=== PATIENT | male | born 1930 | race Caucasian/White ===

== ENCOUNTER → 2016-06-05 | Outpatient (CLI) | payer MEDICARE, BC | LOC: PCVCCLINIC 11:00 | PROVIDERS: ATTEND Internal Medicine | DX: I25.10 Atherosclerotic heart disease of native coronary artery without angina pectoris (principal); I10 Essential (primary) hypertension; I35.0 Nonrheumatic aortic (valve) stenosis; E11.9 Type 2 diabetes mellitus without complications; D46.9 Myelodysplastic syndrome, unspecified; E78.5 Hyperlipidemia, unspecified | CPT/HCPCS: 80061; 93005; G0463 ==

== ENCOUNTER → 2016-12-25 | Outpatient (CLI) | payer MEDICARE, BC ==
--- NOTE | 2016-12-25 10:04 | PCVCIMAG ---
APPROVED REPORT Indications Stenosis Risk Factors Hypertension: Diabetes Surgery/Intervention Endarterectomy: right left Doppler Spectral Velocity Analysis PSV / EDVPSV / EDV ECA (R) 130 / 12 cm/sECA (L) 124 / 0 cm/s dICA (R) 59 / 11 cm/sdICA (L) 73 / 23 cm/s Maryellen (R) 132 / 23 cm/smICA (L) 137 / 37 cm/s pICA (R) 112 / 27 cm/spICA (L) 141 / 35 cm/s Bulb (R) 92 / 16 cm/sBulb (L) 118 / 27 cm/s dCCA (R) 102 / 16 cm/sdCCA (L) 104 / 12 cm/s mCCA (R) 96 / 12 cm/smCCA (L) 116 / 21 cm/s Vert (R) 53 / 13 cm/sVert (L) 48 / 14 cm/s ICA/CCA 1.29ICA/CCA 1.20 Basic Measurements Blood Pressure: Pulses: Right Left RightLeft Brachial(Sitting) 112/27xtKb068/60mmHgTemporal Real Time B-Mode Imaging Vert. (R)AntegradeVert. (L)Antegrade Findings The right carotid bulb has moderate calcified plaque. The right proximal internal carotid artery shows 40-50% stenosis. The right common carotid artery shows no significant stenosis. The right external carotid artery shows no significant stenosis. The left carotid bulb has mild plaque. The left proximal internal carotid artery shows 40-50% stenosis. The left common carotid artery shows no significant stenosis. The left external carotid artery shows no significant stenosis. Conclusion 1. Right internal carotid artery stenosis (40-50%) 2. Left internal carotid artery stenosis (40-50%) 3. Antegrade vertebral flow
== END | disposition home or self-care (01) ==
LOC: PCVCIMAG 08:10
PROVIDERS: ATTEND Internal Medicine
DX: I65.23 Occlusion and stenosis of bilateral carotid arteries (principal); I25.10 Atherosclerotic heart disease of native coronary artery without angina pectoris; I44.0 Atrioventricular block, first degree; I10 Essential (primary) hypertension; I35.0 Nonrheumatic aortic (valve) stenosis; E78.5 Hyperlipidemia, unspecified; E11.9 Type 2 diabetes mellitus without complications; D64.9 Anemia, unspecified; I48.91 Unspecified atrial fibrillation; Z95.1 Presence of aortocoronary bypass graft; Z86.718 Personal history of other venous thrombosis and embolism; Z85.46 Personal history of malignant neoplasm of prostate; Z79.899 Other long term (current) drug therapy; Z87.891 Personal history of nicotine dependence; Z88.8 Allergy status to other drugs, medicaments and biological substances
CPT/HCPCS: 80061; 93005; 93880; G0463

== ENCOUNTER → 2017-07-04 | Outpatient (CLI) | payer MEDICARE, BC | END | disposition home or self-care (01) | LOC: PCVCIMAG 09:00 | DX: I08.8 Other rheumatic multiple valve diseases (principal); I25.10 Atherosclerotic heart disease of native coronary artery without angina pectoris; I10 Essential (primary) hypertension; I65.23 Occlusion and stenosis of bilateral carotid arteries; E11.9 Type 2 diabetes mellitus without complications; E78.5 Hyperlipidemia, unspecified; D46.9 Myelodysplastic syndrome, unspecified; I48.91 Unspecified atrial fibrillation; Z95.1 Presence of aortocoronary bypass graft; Z87.891 Personal history of nicotine dependence; Z79.899 Other long term (current) drug therapy | CPT/HCPCS: 80061; 93005; 93306; G0463 ==

== ENCOUNTER → 2018-01-02 | Outpatient (CLI) | payer MEDICARE, BC | END | disposition home or self-care (01) | LOC: PCVCCLINIC 11:01 | PROVIDERS: ATTEND Internal Medicine | DX: I25.10 Atherosclerotic heart disease of native coronary artery without angina pectoris (principal); I35.0 Nonrheumatic aortic (valve) stenosis; I10 Essential (primary) hypertension; I65.23 Occlusion and stenosis of bilateral carotid arteries; D64.9 Anemia, unspecified; Z79.4 Long term (current) use of insulin; Z87.891 Personal history of nicotine dependence; Z88.8 Allergy status to other drugs, medicaments and biological substances | CPT/HCPCS: 80061; 93005; G0463 ==

== ENCOUNTER → 2018-08-07 | Outpatient (CLI) | payer MEDICARE, BC ==
--- NOTE | 2018-08-07 14:45 | PCVCIMAG ---
APPROVED REPORT Indications Stenosis Risk Factors Hyperlipidemia Diabetes Surgery/Intervention Endarterectomy: right Date: Doppler Spectral Velocity Analysis PSV / EDVPSV / EDV ECA (R) 110 / 0 cm/sECA (L) 107 / 11 cm/s dICA (R) 49 / 13 cm/sdICA (L) 62 / 17 cm/s Maryellen (R) 133 / 25 cm/smICA (L) 107 / 24 cm/s pICA (R) 123 / 26 cm/spICA (L) 125 / 25 cm/s Bulb (R) 90 / 12 cm/sBulb (L) 125 / 21 cm/s dCCA (R) 92 / 10 cm/sdCCA (L) 114 / 18 cm/s mCCA (R) 86 / 8 cm/smCCA (L) 102 / 21 cm/s Vert (R) 34 / 7 cm/sVert (L) 45 / 12 cm/s ICA/CCA 1.10 ICA/CCA 1.44 Real Time B-Mode Imaging Vert. (R)AntegradeVert. (L)Antegrade Findings The right carotid bulb has mild plaque. The right proximal internal carotid artery shows 40-50% stenosis. The right common carotid artery shows no significant stenosis. The right external carotid artery shows no significant stenosis. The left carotid bulb has mild plaque. The left proximal internal carotid artery shows 40-50% stenosis. The left common carotid artery shows no significant stenosis. The left external carotid artery shows no significant stenosis. Conclusion 1. Right internal carotid artery stenosis (40-50%) prior carotid endarterectomy. 2. Left internal carotid artery stenosis (40-50%); prior carotid endarterectomy 3. Antegrade vertebral flow
--- NOTE | 2018-08-07 17:00 | PCVCIMAG ---
APPROVED REPORT Study performed: 08/07/2018 13:29:53 EXAM: Comprehensive 2D, Doppler, and color-flow Echocardiogram [facility]: 1.91 HR: 64 bpmBP: 126/54 mmHg Rhythm: NSR Other Information Study Quality: Adequate Risk Factors: Cardiac Risk Factors: Hyperlipidemia, Diabetes (non-insulin) Indications Aortic Valve Disease Dyspnea CAD S/P CABG 2D Dimensions IVSd: 10.46 (7-11mm)LVOT Diam: 20.68 (18-24mm) LVDd: 42.94 mm PWd: 8.28 (7-11mm)Ascending Ao: 30.18 (22-36mm) LVDs: 27.35 (25-40mm) Left Atrium: 47.31 (27-40mm) Aortic Root: 21.79 mm LV Single Plane 4CH: 68.26 % LV Single Plane 2CH: 63.23 % Biplane EF: 67.6 % Volumes Left Atrial Volume (Systole) Single Plane 4CH: 73.84 mLSingle Plane 2CH: 110.78 mL Biplane LA Volume: 91.00 mLLA ESV Index: 47.00 mL/m2 Aortic Valve AoV Peak Jarocho.: 4.57 m/s AO Peak Gr.: 74.92 mmHgLVOT Max P.34 mmHg AO Mean Gr.: 53.15 mmHgLVOT Mean P.60 mmHg AO V2 Mean: 3.56 m/sLVOT Max V: 1.11 m/s AO V2 VTI: 125.32 cmLVOT Mean V: 0.77 m/s ИРИНА (VTI): 0.78 [id number] V1 VTI: 28.97 cm ИРИНА Vmax: 0.81 cm2 SV (LVOT): 97.27 mL Mitral Valve E/A Ratio: 1.2 MV Decel. Time: 184.55 ms MV E Max Jarocho.: 1.52 m/s MV A Jarocho.: 1.23 m/s IVRT: 69.20 ms TDI E/Lateral E': 13.82E/Medial E': 25.33 Medial E' Jarocho.: 0.06 m/s Lateral E' Jarocho.: 0.11 m/s Pulmonary Valve PV Peak Gr.: 3.55 mmHg Pulmonary Vein P Vein S: 0.68 m/sP Vein A: 0.22 m/s P Vein D: 0.67 m/sP Vein A Dur.: 93.4 msec P Vein S/D Ratio: 1.01 Tricuspid Valve TR Peak Jarocho.: 3.37 m/s TR Peak Gr.: 45.34 mmHg TV Vmax: 1.94 m/sPA Pressure: 52.00 mmHg Left Ventricle The left ventricle is normal size. Paradoxical septal motion consistent with post-operative state. There is normal left ventricular wall thickness. Left ventricular systolic function is normal. The left ventricular ejection fraction is within the normal range. LVEF is 65-70%. The left ventricular diastolic function is normal. Right Ventricle The right ventricle is normal size. The right ventricular systolic function is normal. Atria Left atrium is moderately dilated. The right atrium size is normal. Aortic Valve Aortic valve is trileaflet, heavily calcified. No aortic regurgitation is present. Severe aortic stenosis. Calculated aortic valve area is 0.8-0.9 cm2 with maximum pressure gradient of 84 mmHg and mean pressure gradient of 50 mmHg. Mitral Valve Mild mitral annular calcification Trace to mild mitral regurgitation No evidence of mitral valve stenosis. Tricuspid Valve The tricuspid valve is normal in structure. Mild tricuspid regurgitation with a PA pressure of 50 mmHg. Pulmonic Valve The pulmonary valve is normal in structure. Trace pulmonic regurgitation. Great Vessels The aortic root is normal in size. The ascending aorta is normal in size. IVC is normal in size and collapses >50% with inspiration. Pericardium There is no pericardial effusion. There is no pleural effusion. <Conclusion> Left ventricular systolic function is normal. LVEF is 65-70%. The left ventricular diastolic function is normal. Left atrium is moderately dilated. Aortic valve is trileaflet, heavily calcified. Severe aortic stenosis, no stenosis. Calculated aortic valve area is 0.8-0.9 cm2 with maximum pressure gradient of 84 mmHg and mean pressure gradient of 50 mmHg. Mild mitral annular calcification Trace to mild mitral regurgitation Mild tricuspid regurgitation with a pulmonary artery pressure of 50 mmHg. There is no pericardial effusion. Similar to a study dated June 2017
== END | disposition home or self-care (01) ==
LOC: PCVCIMAG 13:01
PROVIDERS: ATTEND Internal Medicine
DX: I08.3 Combined rheumatic disorders of mitral, aortic and tricuspid valves (principal); I65.23 Occlusion and stenosis of bilateral carotid arteries; E11.9 Type 2 diabetes mellitus without complications; I25.10 Atherosclerotic heart disease of native coronary artery without angina pectoris; I10 Essential (primary) hypertension; I48.91 Unspecified atrial fibrillation; E78.2 Mixed hyperlipidemia; D46.9 Myelodysplastic syndrome, unspecified; R94.31 Abnormal electrocardiogram [ECG] [EKG]; Z88.8 Allergy status to other drugs, medicaments and biological substances; Z95.1 Presence of aortocoronary bypass graft; Z79.899 Other long term (current) drug therapy; Z87.891 Personal history of nicotine dependence
CPT/HCPCS: 36415; 80061; 93005; 93306; 93880; G0463

== ENCOUNTER → 2018-12-23 | Outpatient (CLI) | payer MEDICARE, BC | END | disposition home or self-care (01) | LOC: PCVCCLINIC 13:30 | PROVIDERS: ATTEND Internal Medicine | DX: I25.10 Atherosclerotic heart disease of native coronary artery without angina pectoris (principal); I35.0 Nonrheumatic aortic (valve) stenosis; I48.2 Chronic atrial fibrillation; E78.5 Hyperlipidemia, unspecified; I65.23 Occlusion and stenosis of bilateral carotid arteries; E11.9 Type 2 diabetes mellitus without complications; D64.9 Anemia, unspecified | CPT/HCPCS: 93005; G0463 ==